=== PATIENT | female | born 1935 | race Caucasian/White ===

== ENCOUNTER → 2019-10-06 | Outpatient (CLI) | payer MEDICARE ==
[2019-10-06 14:22] LABS: BASOPHILS % (AUTO) 1.3 % (0.0-5.0); HEMATOCRIT 38.4 % (36-48); LYMPHOCYTES % (AUTO) 20.3 % (21.0-51.0); MEAN CORPUSCULAR HGB CONC 32.3 g/dL (32.0-36.0); MEAN CORPUSCULAR VOLUME 89.9 fL (79-99); MONOCYTES % (AUTO) 9.1 % (3.0-13.0); NEUTROPHILS % (AUTO) 65.9 % (40.0-77.0); PLATELET COUNT (AUTO) 414 K/uL (130-400); RED BLOOD CELL COUNT(AUTO) 4.27 MIL/uL (4.00-5.50); RED CELL DISTRIBUTION WIDTH 13.8 % (11.0-15.5); WHITE BLOOD COUNT (AUTO) 7.6 K/uL (4.8-10.8)
[2019-10-06 14:41] LABS: ALBUMIN 3.1 g/dL (3.5-5.0); BILIRUBIN,TOTAL 0.4 mg/dL (0.2-1.0); CREATININE 0.7 mg/dL (0.5-1.5); TOTAL PROTEIN, SERUM 6.4 g/dL (6.0-8.3)
== END ==
LOC: DAH 10:00 → EDSTATUS 10-11 11:10
PROVIDERS: ATTEND Surgery
DX: K80.20 Calculus of gallbladder without cholecystitis without obstruction (principal); I45.10 Unspecified right bundle-branch block; U07.1 COVID-19; Z79.01 Long term (current) use of anticoagulants; Z53.8 Procedure and treatment not carried out for other reasons
CPT/HCPCS: 36415; 80053; 85025; 93005; U0003

== ENCOUNTER 2020-06-29 03:48 | Inpatient (IN) | payer MEDICARE ==
[~2020-06-29] VITALS: Ht 157.5 cm; Wt 58.5 kg
[2020-06-29 04:07] LABS: BASOPHILS % (AUTO) 0.5 % (0.0-5.0); EOSINOPHILS % (AUTO) 1.1 % (0.0-8.0); HEMATOCRIT 42.9 % (36-48); LYMPHOCYTES % (AUTO) 19.6 % (21.0-51.0); MEAN CORPUSCULAR HEMOGLOBIN 29.5 pg (27.0-33.0); MEAN CORPUSCULAR VOLUME 86.7 fL (79-99); MONOCYTES % (AUTO) 9.6 % (3.0-13.0); NEUTROPHILS % (AUTO) 68.9 % (40.0-77.0); PLATELET COUNT (AUTO) 420 K/uL (130-400); RED BLOOD CELL COUNT(AUTO) 4.95 MIL/uL (4.00-5.50); RED CELL DISTRIBUTION WIDTH 12.9 % (11.0-15.5); WHITE BLOOD COUNT (AUTO) 8.7 K/uL (4.8-10.8)
[2020-06-29 04:35] LABS: ALBUMIN 3.6 g/dL (3.5-5.0); BILIRUBIN,TOTAL 1.6 mg/dL (0.2-1.0); CREATININE 0.6 mg/dL (0.5-1.5); POTASSIUM 3.6 mmol/L (3.5-5.1)
[2020-06-29] MEDS ORDERED: METOCLOPRAMIDE 10 MG/2 ML VIAL ONE (04:46)
[2020-06-29] MEDS ORDERED: ONDANSETRON HCL 4 MG/2 ML VIAL ONE (04:46)
[2020-06-29] MEDS ORDERED: FAMOTIDINE/PF 20 MG/2 ML VIAL IV ONE (04:47)
[2020-06-29] MEDS ORDERED: IOHEXOL-350 75 ML VIAL IV ONE (04:48)
[2020-06-29] MEDS ORDERED: ZOSYN 3.375GM+NS 50ML 50 ML IV ONE (06:20)
[2020-06-29] MEDS ORDERED: SODIUM CHLORIDE 0.9% 1000ML 1,000 ML IV SCH (06:45)
[2020-06-29] MEDS ORDERED: KETOROLAC TROMETHAMINE 15MG/ML IM PRN (08:15)
[2020-06-29] MEDS ORDERED: HYDROMORPHONE HCL 0.5 MG/0.5 ML ML IVP PRN (08:15)
[2020-06-29] MEDS ORDERED: FAMOTIDINE 20MG TAB 20 MG TAB PO SCH (09:00)
[2020-06-29 09:34] VITALS: BP 157/71
[2020-06-29] MEDS ORDERED: FLUTICASONE PROPIONATE 50MCG/SPRAY 16 GM BOTTLE EN PRN (09:45)
[2020-06-29] MEDS ORDERED: POTASSIUM CHLORIDE 20MEQ/100ML 100 ML IV PRN ×2 (10:15)
[2020-06-29] MEDS ORDERED: LIDOCAINE HCL-MPF 1% 2ML VIAL IV PRN ×2 (10:15)
[2020-06-29] MEDS ORDERED: MAGNESIUM 2GM PREMIX 50ML 50 ML IV PRN (10:15)
[2020-06-29] MEDS ORDERED: POTASSIUM CHLORIDE 20 MEQ ERTAB PO PRN (10:15)
[2020-06-29] MEDS ORDERED: DEXTROSE 50%-WATER 50 ML DISP.SYRIN IV PRN (10:15)
[2020-06-29] MEDS ORDERED: GLUCAGON 1MG KIT 1 MG ML IM PRN (10:15)
[2020-06-29] MEDS ORDERED: TRAMADOL HCL 50 MG TABLET PO PRN (10:30)
[2020-06-29 11:35] VITALS: BP 156/79
[2020-06-29] MEDS: ENOXAPARIN SODIUM 30 MG/0.3 ML SQ SCH (13:37)
[2020-06-29] MEDS: HYDROCHLOROTHIAZIDE 25 MG TABLET PO SCH (13:37)
[2020-06-29] MEDS ORDERED: GADODIAMIDE 10 MMOL/20 ML VIAL IV ONE (14:02)
[2020-06-29] MEDS: DEXTROSE 5 %-0.45 % NACL 1,000 ML IV SCH (14:30)
[2020-06-29 17:08] VITALS: BP 147/83
[2020-06-29 20:02] VITALS: BP 146/61
[2020-06-29 20:03] VITALS: BP 146/61
[2020-06-29] MEDS: LOSARTAN 50 MG TABLET PO SCH (20:40)
[2020-06-29 23:57] VITALS: BP 150/70
[2020-06-30] VITALS (20 sets, daily range): BP systolic 125–162; BP diastolic 64–88
[2020-06-30 05:46] LABS: MEAN CORPUSCULAR HEMOGLOBIN 29.4 pg (27.0-33.0); MEAN CORPUSCULAR HGB CONC 33.7 g/dL (32.0-36.0); MEAN CORPUSCULAR VOLUME 87.4 fL (79-99); RED BLOOD CELL COUNT(AUTO) 4.35 MIL/uL (4.00-5.50); RED CELL DISTRIBUTION WIDTH 13.1 % (11.0-15.5); WHITE BLOOD COUNT (AUTO) 5.7 K/uL (4.8-10.8)
[2020-06-30 06:25] LABS: ALBUMIN 2.9 g/dL (3.5-5.0); BILIRUBIN,DIRECT 3.4 mg/dL (0.0-0.3); BILIRUBIN,TOTAL 4.1 mg/dL (0.2-1.0); CREATININE 0.6 mg/dL (0.5-1.5); MAGNESIUM 2.7 mg/dL (1.80-2.40); POTASSIUM 3.4 mmol/L (3.5-5.1); TOTAL PROTEIN, SERUM 5.8 g/dL (6.0-8.3)
[2020-06-30] MEDS: ENOXAPARIN SODIUM 30 MG/0.3 ML SQ SCH ×2 (09:00→18:05)
[2020-06-30] MEDS ORDERED: IOHEXOL-350 50ML VIAL IV ONE (10:06)
[2020-06-30] MEDS ORDERED: PROPOFOL 10 MG/ML 20ML VIAL IV ONE (10:56)
[2020-06-30] MEDS ORDERED: KETAMINE 50MG/ML SYRINGE 50 MG/ML DISP.SYRIN IV ONE (10:56)
[2020-06-30] MEDS ORDERED: SUCCINYLCHOLINE CHLORIDE 20 MG/ML 10 ML VIAL ONE (10:56)
[2020-06-30] MEDS ORDERED: DEXAMETHASONE SOD PHOSPHATE 10MG/ML 1ML VIAL ONE (10:56)
[2020-06-30] MEDS ORDERED: GLYCOPYRROLATE 1 MG/5 ML SYRINGE ONE (10:56)
[2020-06-30] MEDS ORDERED: ONDANSETRON HCL 4 MG/2 ML VIAL ONE (10:56)
[2020-06-30] MEDS ORDERED: INDOMETHACIN 50 MG SUPP.RECT RC SCH ×2 (11:30)
[2020-06-30] MEDS: DEXTROSE 5 %-0.45 % NACL 1,000 ML IV SCH ×5 (13:45→20:59)
[2020-06-30] MEDS: PANTOPRAZOLE 40 MG/VIAL IVP SCH (13:45)
[2020-06-30] MEDS: HYDROCHLOROTHIAZIDE 25 MG TABLET PO SCH (14:02)
[2020-06-30] MEDS: ASPIRIN 81MG TAB.CHEW PO SCH (18:04)
[2020-06-30] MEDS: EZETIMIBE 10 MG TAB PO SCH (18:04)
[2020-06-30] MEDS: LOSARTAN 50 MG TABLET PO SCH (20:54)
[2020-06-30] MEDS: POTASSIUM CHLORIDE 10% ELIXIR 20 MEQ/15 ML UDCUP PO PRN (20:55)
[2020-07-01] MEDS: DEXTROSE 5 %-0.45 % NACL 1,000 ML IV SCH (02:10)
[2020-07-01 03:56] VITALS: BP 132/90
[2020-07-01 04:19] LABS: HEMATOCRIT 34.8 % (36-48); MEAN CORPUSCULAR HEMOGLOBIN 29.9 pg (27.0-33.0); MEAN CORPUSCULAR HGB CONC 34.8 g/dL (32.0-36.0); MEAN CORPUSCULAR VOLUME 85.9 fL (79-99); RED BLOOD CELL COUNT(AUTO) 4.05 MIL/uL (4.00-5.50); RED CELL DISTRIBUTION WIDTH 12.9 % (11.0-15.5); WHITE BLOOD COUNT (AUTO) 7.4 K/uL (4.8-10.8)
[2020-07-01 04:37] LABS: CREATININE 0.6 mg/dL (0.5-1.5); POTASSIUM 3.4 mmol/L (3.5-5.1)
[2020-07-01] MEDS: POTASSIUM CHLORIDE 10% ELIXIR 20 MEQ/15 ML UDCUP PO PRN ×2 (05:48→15:34)
[2020-07-01 08:00] VITALS: BP 145/62
[2020-07-01] MEDS: PANTOPRAZOLE 40 MG/VIAL IVP SCH (09:09)
[2020-07-01] MEDS: ASPIRIN 81MG TAB.CHEW PO SCH (09:10)
[2020-07-01] MEDS: HYDROCHLOROTHIAZIDE 25 MG TABLET PO SCH (09:10)
[2020-07-01] MEDS: EZETIMIBE 10 MG TAB PO SCH (09:10)
[2020-07-01 12:00] VITALS: BP 140/62
[2020-07-01] MEDS ORDERED: PANT40TA PO (13:29)
[2020-07-01 16:00] VITALS: BP 136/53
[2020-07-02] MEDS ORDERED: PANTOPRAZOLE SODIUM 40 MG TABLET.DR PO SCH (09:00)
== END 2020-07-01 17:30 | DRG 446 ==
LOC: EDH 03:48 → OBSVTOIN 06:34 → EDHIP 06:34 → 3AH 09:17 → 3DH 17:03
PROVIDERS: ADMIT Internal Medicine Pulmonary Disease; ATTEND Internal Medicine Pulmonary Disease
PROC: 0FC98ZZ Extirpation of Matter from Common Bile Duct, Via Natural or Artificial Opening Endoscopic (ICD-10-PCS; principal; 2020-06-30)
PROC: BF101ZZ Fluoroscopy of Bile Ducts using Low Osmolar Contrast (ICD-10-PCS; 2020-06-30)
DX: K80.71 Calculus of gallbladder and bile duct without cholecystitis with obstruction (principal); E86.0 Dehydration; K83.9 Disease of biliary tract, unspecified; Z66 Do not resuscitate; I25.10 Atherosclerotic heart disease of native coronary artery without angina pectoris; Z88.8 Allergy status to other drugs, medicaments and biological substances; Z88.5 Allergy status to narcotic agent; Z90.49 Acquired absence of other specified parts of digestive tract; Z90.722 Acquired absence of ovaries, bilateral; Z85.3 Personal history of malignant neoplasm of breast; Z86.73 Personal history of transient ischemic attack (TIA), and cerebral infarction without residual deficits; R79.89 Other specified abnormal findings of blood chemistry; Z92.3 Personal history of irradiation
CPT/HCPCS: 36415; 43262; 43264; 74177; 74183; 74330; 76705; 80048; 80053; 80076; 83605; 83690; 83735; 84145; 85025; 85027; 87040; 93005; A9579; C1769; C9113; G0378; J0330; J1100; J1650; J1885; J2405; J2543; J2704; J2765; J3490; J7042; Q9967

== ENCOUNTER 2021-08-18 13:07 | Inpatient (IN) | payer MEDICARE ==
[~2021-08-18] VITALS: Ht 157.5 cm; Wt 60.2 kg
[~2021-08-18 13:07] MED LIST: PANT40TA PO
[2021-08-18 14:05] LABS: BASOPHILS % (AUTO) 0.9 % (0.0-5.0); EOSINOPHILS % (AUTO) 0.9 % (0.0-8.0); HEMATOCRIT 41.2 % (36-48); LYMPHOCYTES % (AUTO) 9.4 % (21.0-51.0); MEAN CORPUSCULAR HEMOGLOBIN 29.4 pg (27.0-33.0); MEAN CORPUSCULAR HGB CONC 33.5 g/dL (32.0-36.0); MEAN CORPUSCULAR VOLUME 87.7 fL (79-99); NEUTROPHILS % (AUTO) 80.1 % (40.0-77.0); PLATELET COUNT (AUTO) 345 K/uL (130-400); RED CELL DISTRIBUTION WIDTH 13.4 % (11.0-15.5); WHITE BLOOD COUNT (AUTO) 8.8 K/uL (4.8-10.8)
[2021-08-18 14:18] LABS: ALBUMIN 3.6 g/dL (3.5-5.0); BILIRUBIN,TOTAL 0.3 mg/dL (0.2-1.0); CREATININE 0.6 mg/dL (0.5-1.5); POTASSIUM 3.5 mmol/L (3.5-5.1); TOTAL PROTEIN, SERUM 6.3 g/dL (6.0-8.3)
[2021-08-19] VITALS (10 sets, daily range): BP systolic 111–151; BP diastolic 59–74
[2021-08-19] MEDS ORDERED: POTASSIUM CHLORIDE 20MEQ/100ML 100 ML IV PRN (03:30)
[2021-08-19] MEDS ORDERED: POTASSIUM CHLORIDE 10% ELIXIR 20 MEQ/15 ML UDCUP PO PRN (03:30)
[2021-08-19] MEDS ORDERED: LABETALOL 20MG SYG IV PRN (04:30)
[2021-08-19] MEDS ORDERED: ACETAMINOPHEN 325 MG TAB PO PRN (04:30)
[2021-08-19] MEDS ORDERED: 0.9%NACL 1000ML 1,000 ML IV SCH (04:30)
[2021-08-19] MEDS ORDERED: LACTATED RINGERS 1000ML 1,000 ML IV SCH (04:30)
[2021-08-19] MEDS ORDERED: ONDANSETRON 4MG INJ IVP PRN (04:30)
[2021-08-19 05:17] LABS: BASOPHILS % (AUTO) 1.3 % (0.0-5.0); EOSINOPHILS % (AUTO) 3.1 % (0.0-8.0); HEMATOCRIT 38.5 % (36-48); LYMPHOCYTES % (AUTO) 18.4 % (21.0-51.0); MEAN CORPUSCULAR HEMOGLOBIN 29.6 pg (27.0-33.0); MEAN CORPUSCULAR VOLUME 87.1 fL (79-99); NEUTROPHILS % (AUTO) 63.8 % (40.0-77.0); PLATELET COUNT (AUTO) 325 K/uL (130-400); RED BLOOD CELL COUNT(AUTO) 4.42 MIL/uL (4.00-5.50); RED CELL DISTRIBUTION WIDTH 13.2 % (11.0-15.5); WHITE BLOOD COUNT (AUTO) 6.8 K/uL (4.8-10.8)
[2021-08-19 05:34] LABS: ALBUMIN 3.1 g/dL (3.5-5.0); BILIRUBIN,TOTAL 0.5 mg/dL (0.2-1.0); CREATININE 0.5 mg/dL (0.5-1.5); PHOSPHORUS 3.6 mg/dL (2.5-4.9); POTASSIUM 3.4 mmol/L (3.5-5.1); TOTAL PROTEIN, SERUM 5.8 g/dL (6.0-8.3)
[2021-08-19] MEDS: KCL 20 MEQ ERTAB PO PRN ×2 (06:14→12:34)
[2021-08-19] MEDS ORDERED: AEC81 PO (09:47)
[2021-08-19] MEDS ORDERED: IBUP-2071 PO (09:47)
[2021-08-19] MEDS ORDERED: EZET10TA48 PO (09:47)
[2021-08-19] MEDS ORDERED: UBID30CA PO (09:47)
[2021-08-19] MEDS ORDERED: HYDR25TA PO (09:47)
[2021-08-19] MEDS ORDERED: MULT-1296 PO (09:47)
[2021-08-19] MEDS ORDERED: BIOT10004 PO (09:47)
[2021-08-19] MEDS ORDERED: FLUT16H NASAL (09:47)
[2021-08-19] MEDS ORDERED: LOSA50TA64 PO (09:47)
[2021-08-19] MEDS ORDERED: TRAM50TA4 PO (09:47)
[2021-08-19] MEDS ORDERED: MECL-160 PO (09:47)
[2021-08-19] MEDS ORDERED: POTASSIUM CHLORIDE 10MEQ SR TAB PO SCH (10:30)
[2021-08-19] MEDS ORDERED: METOPROLOL TARTRATE 25 MG TAB PO SCH (10:41)
[2021-08-19] MEDS ORDERED: METOPROLOL TARTRATE 25 MG TAB ONE (10:46)
[2021-08-19] MEDS ORDERED: IOHEXOL 350 MG/ML 100ML INFUS..BTL IV ONE (11:02)
[2021-08-19] MEDS ORDERED: METOPROLOL TARTRATE 1 MG/ML 5ML VIAL IV ONE (11:31)
[2021-08-19] MEDS: ENOXAPARIN SODIUM 30 MG/0.3 ML SQ SCH (12:35)
[2021-08-19] MEDS ORDERED: LACTULOSE 20 GM/30 ML UDCUP PO PRN (19:00)
[2021-08-19] MEDS ORDERED: HYDRALAZINE 20MG/ML VIAL IV PRN (19:00)
[2021-08-19] MEDS ORDERED: ALBUTEROL 0.083% 2.5 MG/3 ML INH IH PRN (19:00)
[2021-08-19] MEDS: INSULIN HUMULIN R 100 UNIT/ML 3ML SQ SCH (20:39)
[2021-08-20 03:42] VITALS: BP 122/68
[2021-08-20 03:48] LABS: BASOPHILS % (AUTO) 1.3 % (0.0-5.0); EOSINOPHILS % (AUTO) 4.1 % (0.0-8.0); HEMATOCRIT 36.7 % (36-48); LYMPHOCYTES % (AUTO) 24.1 % (21.0-51.0); MEAN CORPUSCULAR HEMOGLOBIN 30.3 pg (27.0-33.0); MEAN CORPUSCULAR HGB CONC 33.8 g/dL (32.0-36.0); MEAN CORPUSCULAR VOLUME 89.7 fL (79-99); MONOCYTES % (AUTO) 12.8 % (3.0-13.0); NEUTROPHILS % (AUTO) 57.3 % (40.0-77.0); PLATELET COUNT (AUTO) 293 K/uL (130-400); RED BLOOD CELL COUNT(AUTO) 4.09 MIL/uL (4.00-5.50); RED CELL DISTRIBUTION WIDTH 13.7 % (11.0-15.5); WHITE BLOOD COUNT (AUTO) 6.9 K/uL (4.8-10.8)
[2021-08-20 04:14] LABS: ALBUMIN 2.7 g/dL (3.5-5.0); BILIRUBIN,TOTAL 0.3 mg/dL (0.2-1.0); CREATININE 0.6 mg/dL (0.5-1.5); MAGNESIUM 1.9 mg/dL (1.80-2.40); POTASSIUM 4.3 mmol/L (3.5-5.1); TOTAL PROTEIN, SERUM 5.4 g/dL (6.0-8.3)
[2021-08-20] MEDS: INSULIN HUMULIN R 100 UNIT/ML 3ML SQ SCH ×4 (06:01→20:26)
[2021-08-20 07:30] VITALS: BP 132/59
[2021-08-20] MEDS ORDERED: MECLIZINE HCL 25 MG TABLET PO PRN (08:30)
[2021-08-20] MEDS ORDERED: MAGNESIUM 2GM PREMIX 50ML 50 ML IV PRN (08:30)
[2021-08-20] MEDS ORDERED: TRAMADOL HCL 50 MG TABLET PO PRN (08:30)
[2021-08-20] MEDS ORDERED: HYDROCHLOROTHIAZIDE 25 MG TABLET PO SCH (09:00)
[2021-08-20] MEDS: PANTOPRAZOLE 40 MG/VIAL IVP SCH (10:14)
[2021-08-20] MEDS: ENOXAPARIN SODIUM 30 MG/0.3 ML SQ SCH (10:15)
[2021-08-20] MEDS: ASPIRIN 81 MG EC TAB PO SCH (10:15)
[2021-08-20 11:19] VITALS: BP 109/51
[2021-08-20 15:49] VITALS: BP 123/54
[2021-08-20 19:44] VITALS: BP 113/49
[2021-08-20] MEDS: EZETIMIBE 10 MG TAB PO SCH (20:20)
[2021-08-20] MEDS: FLUTICASONE PROPIONATE 50MCG/SPRAY 16 GM BOTTLE NS SCH (20:21)
[2021-08-20] MEDS: BIOTIN 1000 MCG PO SCH (20:26)
[2021-08-20] MEDS ORDERED: LOSARTAN 50 MG TABLET PO SCH (21:00)
[2021-08-20 23:06] VITALS: BP 143/62
[2021-08-21 03:34] VITALS: BP 132/63
[2021-08-21 04:47] LABS: BASOPHILS % (AUTO) 1.5 % (0.0-5.0); EOSINOPHILS % (AUTO) 5.3 % (0.0-8.0); HEMATOCRIT 36.9 % (36-48); LYMPHOCYTES % (AUTO) 21.7 % (21.0-51.0); MEAN CORPUSCULAR HGB CONC 34.1 g/dL (32.0-36.0); MEAN CORPUSCULAR VOLUME 87.9 fL (79-99); MONOCYTES % (AUTO) 12.1 % (3.0-13.0); NEUTROPHILS % (AUTO) 59.1 % (40.0-77.0); PLATELET COUNT (AUTO) 275 K/uL (130-400); RED CELL DISTRIBUTION WIDTH 13.5 % (11.0-15.5); WHITE BLOOD COUNT (AUTO) 6.8 K/uL (4.8-10.8)
[2021-08-21 05:12] LABS: ALBUMIN 2.7 g/dL (3.5-5.0); BILIRUBIN,TOTAL 0.4 mg/dL (0.2-1.0); CREATININE 0.6 mg/dL (0.5-1.5); POTASSIUM 4.1 mmol/L (3.5-5.1); TOTAL PROTEIN, SERUM 5.3 g/dL (6.0-8.3)
[2021-08-21] MEDS: INSULIN HUMULIN R 100 UNIT/ML 3ML SQ SCH ×2 (06:50→10:50)
[2021-08-21 06:54] VITALS: BP 148/57
[2021-08-21] MEDS: PANTOPRAZOLE 40 MG/VIAL IVP SCH (07:31)
[2021-08-21] MEDS: ASPIRIN 81 MG EC TAB PO SCH (07:33)
[2021-08-21] MEDS: ENOXAPARIN SODIUM 30 MG/0.3 ML SQ SCH (07:34)
[2021-08-21 11:00] VITALS: BP 132/60
[2021-08-21 15:39] VITALS: BP 130/62
[2021-08-21 19:19] VITALS: BP 131/61
[2021-08-21] MEDS: EZETIMIBE 10 MG TAB PO SCH (20:54)
[2021-08-21] MEDS: BIOTIN 1000 MCG PO SCH (20:55)
[2021-08-21] MEDS: FLUTICASONE PROPIONATE 50MCG/SPRAY 16 GM BOTTLE NS SCH (20:55)
[2021-08-21 23:22] VITALS: BP 127/55
[2021-08-22 03:19] VITALS: BP 130/73
[2021-08-22 07:17] VITALS: BP 149/60
[2021-08-22] MEDS: PANTOPRAZOLE 40 MG/VIAL IVP SCH (08:22)
[2021-08-22] MEDS: ASPIRIN 81 MG EC TAB PO SCH (08:23)
[2021-08-22] MEDS: ENOXAPARIN SODIUM 30 MG/0.3 ML SQ SCH (08:23)
[2021-08-22 11:17] VITALS: BP 144/68
== END 2021-08-22 13:50 | disposition home or self-care (01) | DRG 291 ==
LOC: EDH 13:07 → OBSVTOIN 17:12 → EDHIP 17:12 → 2DH 08-19 00:12
PROVIDERS: ADMIT Internal Medicine; ATTEND Internal Medicine
PROC: B2211ZZ Computerized Tomography (CT Scan) of Multiple Coronary Arteries using Low Osmolar Contrast (ICD-10-PCS; principal; 2021-08-19)
DX: I11.0 Hypertensive heart disease with heart failure (principal); I50.33 Acute on chronic diastolic (congestive) heart failure; I10 Essential (primary) hypertension; F03.90 Unspecified dementia, unspecified severity, without behavioral disturbance, psychotic disturbance, mood disturbance, and anxiety; E78.5 Hyperlipidemia, unspecified; I45.10 Unspecified right bundle-branch block; H91.90 Unspecified hearing loss, unspecified ear; E87.6 Hypokalemia; Z20.822 Contact with and (suspected) exposure to COVID-19; E78.00 Pure hypercholesterolemia, unspecified; I25.10 Atherosclerotic heart disease of native coronary artery without angina pectoris; Z79.82 Long term (current) use of aspirin
CPT/HCPCS: 36415; 70450; 70486; 72125; 73140; 73560; 75574; 80053; 80061; 82948; 83735; 84100; 84484; 85025; 87635; 87804; 93005; 93306; 93356; C9113; G0378; J1650; J3475; J3490; J7030; Q9967

== ENCOUNTER → 2022-11-19 | Outpatient (CLI) | payer MEDICARE ==
[~2022-11-19] MED LIST changes: +AEC81 PO; +BIOT10004 PO; +EZET10TA48 PO; +FLUT16H NASAL; +MECL-160 PO; +UBID30CA PO
== END | disposition home or self-care (01) ==
LOC: SHCH 09:56
PROVIDERS: ATTEND Student in an Organized Health Care Education/Training Program
DX: R09.89 Other specified symptoms and signs involving the circulatory and respiratory systems (principal)
CPT/HCPCS: 93880